=== PATIENT | male | born 1975 | race African-American/Black ===

== ENCOUNTER 2016-05-10 22:54 | Emergency (ER) | payer OTHER ==
[~2016-05-10] VITALS: Ht 177.8 cm; Wt 100.0 kg
[~2016-05-10 22:54] MED LIST: CARV12.545 PO; LISI10TA5 PO; SIMV20TA6 PO
[2016-05-11] MEDS ORDERED: IPRATROPIUM/ALBUTEROL 0.5-3(2.5)MG/3ML NEB HHN ONE
[2016-05-11 00:17] LABS: HEMATOCRIT. 43.6 % (42.0-52.0); HEMOGLOBIN. 13.9 g/dL (14.0-18.0); MEAN CORPUSCULAR HEMOGLOBIN 25.5 pg (28.0-32.0); MEAN CORPUSCULAR HGB CONC 31.9 g/dL (31.0-37.0); MEAN PLATELET VOLUME 9.2 fl (7.4-10.4); PLATELET 202 x1000/uL (130-400); RED BLOOD CELL COUNT 5.46 mill/uL (4.7-6.1); WHITE BLOOD COUNT 8.8 x1000/uL (4.5-11.0)
[2016-05-11 00:20] LABS: DIFFERENTIAL COMMENT 1
[2016-05-11 00:22] LABS: INR 1.1; PROTHROMBIN TIME 11.4 sec
[2016-05-11 00:31] LABS: ALANINE AMINOTRANSFERASE 38 IU/L (13-61); ALBUMIN 3.5 g/dL (3.4-5.0); ANION GAP 14; CALCIUM 8.5 mg/dL (8.5-10.1); CARBON DIOXIDE 27 mEq/L (21-32); CHLORIDE 105 mEq/L (98-107); INDEX HEMOLYSI 1 (1-3); INDEX ICTERIC 1 (1-4); INDEX LIPEMIC 1 (1-3); LIPASE 125 IU/L (73-393); NT PRO B-TYPE NATRIURETIC PEP 65 pg/mL (5-125); TROPONIN I < 0.02 ng/mL (0.00-0.04); UREA NITROGEN BLOOD 12 mg/dL (7-21); eGFR > 60 mL/min (>60)
[2016-05-11 00:51] LABS: ATYPICAL LYMPHOCYTES 2; PLATELET ESTIMATE NORMAL
[2016-05-11 02:00] VITALS: BP 143/81
== END 2016-05-11 02:04 | disposition home or self-care (01) ==
LOC: ER 23:32
DX: R06.02 Shortness of breath (principal); I50.9 Heart failure, unspecified; I10 Essential (primary) hypertension; F12.10 Cannabis abuse, uncomplicated; E78.00 Pure hypercholesterolemia, unspecified; Z90.81 Acquired absence of spleen
CPT/HCPCS: 36415; 71010; 80053; 83690; 83880; 84484; 85025; 85610; 85730; 93005; 94640; 99285; Z7610; J7620

== ENCOUNTER 2017-09-17 18:18 | Emergency (ER) | payer OTHER ==
[~2017-09-17] VITALS: Ht 175.3 cm; Wt 100.0 kg
[2017-09-17] MEDS ORDERED: KETOROLAC 30MG/ML VIAL IM ONE (22:45)
[2017-09-18 00:51] VITALS: BP 121/78
== END 2017-09-18 00:54 | disposition home or self-care (01) ==
LOC: ER 18:18
DX: S80.12XA Contusion of left lower leg, initial encounter (principal); I10 Essential (primary) hypertension; E78.00 Pure hypercholesterolemia, unspecified; I50.9 Heart failure, unspecified; F12.10 Cannabis abuse, uncomplicated; Z90.81 Acquired absence of spleen; Z98.890 Other specified postprocedural states; Z87.828 Personal history of other (healed) physical injury and trauma; V28.0XXA Motorcycle driver injured in noncollision transport accident in nontraffic accident, initial encounter; Y92.488 Other paved roadways as the place of occurrence of the external cause
CPT/HCPCS: 73552; 73590; 73610; 73630; 99284; L1830